=== PATIENT | male | born 1960 | race American Indian/Alaskan Native ===

== ENCOUNTER 2020-11-19 10:29 | Emergency (ER) | payer SELFPAY ==
[2020-11-19] MEDS ORDERED: ALBUTEROL 2.5 MG/3 ML NEBU IH ONE (10:52)
[2020-11-19] MEDS ORDERED: predniSONE 20 MG TAB PO ONE (10:52)
--- NOTE | 2020-11-19 10:58 | Emergency Department Report ---
Minor Respiratory - HPI Chief Complaint: Upper Respiratory Infection Stated Complaint: COUGH/SOB Time Seen by Provider: 11/19/20 10:47 Duration: 2 wk inter (Constant cough) Severity: moderate Minor Respiratory: Yes Rhinorrhea, Yes Sore Throat, Yes Able to Tolerate Fluids, Yes Cough, Yes Shortness of Breath, No Ear Pain, No Chest Pain, No Fever Other History: 59-year-old -[place] male with no past medical history presents to the emergency room stating he has had intermittent dry cough for 2 weeks and then constant cough in the last 3 days. Patient states he woke up this morning sweating. He states that he has been wheezing and when he coughs it makes his throat sore. Patient has not had a Covid test. Denies any fever chills no nausea no vomiting no diarrhea no loss of taste or smell. ED Review of Systems ROS: Stated complaint: COUGH/SOB Other details as noted in HPI Comment: All other systems reviewed and negative ENT: throat pain (With coughing), other (Rhinorrhea). denies: congestion Respiratory: cough (Intermittent cough x2 weeks now constant cough x3 days), wheezing. denies: shortness of breath Cardiovascular: denies: chest pain, palpitations ED Past Medical Hx - Social History Smoking Status: Never Smoker Substance Use Type: Alcohol - Medications Home Medications: Home Medications Medication Instructions Recorded Confirmed Last Taken Type Albuterol Sulfate [Proair 90 mcg IH QID PRN #1 [email or web address] 11/19/20 Unknown Rx Respiclick] Prednisone [predniSONE 10 mg 10 mg PO .TAPER #1 tab.ds.pk 11/19/20 Unknown Rx (6-Day Pack, 21 Tabs)] Minor Respiratory Exam - Exam General: Vital signs noted. No distress. Alert and acting appropriately. HEENT: Yes Moist Mucous Membranes, No Pharyngeal Erythema, No Pharyngeal Exudates, No Rhinorrhea, No Conjuctival Injection, No Frontal Tenderness, No Maxillary Tenderness Neck: Yes Supple, No Adenopathy Lungs: Yes Good Air Exchange, Yes Wheezes, Yes Ronchi, Yes Cough, No Labored Respirations, No Retractions, No Use of Accessory Muscles Neurologic: Alert and oriented, no deficits. Musculoskeletal: Unremarkable. ED Course - Reevaluation(s) Reevaluation #1: 11/19/20 12:17 Per patient he states he has improved. I still hear quite a bit of rhonchus in the left upper lungs. I have ordered a DuoNeb. Patient is just receiving his prednisone. Critical care attestation.: If time is entered above; I have spent that time in minutes in the direct care of this critically ill patient, excluding procedure time. ED Disposition Clinical Impression: Asthma exacerbation Disposition: [id number] TO HOME OR SELFCARE Is pt being admited?: No Does the pt Need Aspirin: No Condition: Stable Instructions: Asthma, Adult, [id number] Additional Instructions: Please use inhaler as needed. Complete your prednisone pack. Follow-up with your primary care provider. Prescriptions: Prednisone [predniSONE 10 mg (6-Day Pack, 21 Tabs)] 10 mg PO .TAPER #1 tab.ds.pk Albuterol Sulfate [Proair Respiclick] 90 mcg IH QID PRN #1 aer.[email or web address] PRN Reason: Wheezing Forms: Work/School Release Form(ED)
[2020-11-19] MEDS ORDERED: IPRATROPIUM/ALBUTEROL SULFATE 3 ML AMPUL.NEB IH ONE ×2 (12:13→12:16)
[2020-11-19 15:42] VITALS: BP 154/98
== END 2020-11-19 12:40 | disposition home or self-care (01) ==
LOC: ED 10:29
DX: J45.901 Unspecified asthma with (acute) exacerbation (principal); Z79.899 Other long term (current) drug therapy
CPT/HCPCS: 94640; 99282; J7512; 94644